=== PATIENT | female | born 2000 | race Caucasian/White ===

== ENCOUNTER 2022-01-05 20:32 | Emergency (ER) | payer MEDICAID, OTHER ==
[~2022-01-05] VITALS: Ht 154.9 cm; Wt 56.7 kg
[2022-01-05 21:57] LABS: Urine Amorphous Crystal MOD /hpf (None Seen); Urine Bacteria NONE SEEN /hpf (None Seen); Urine Blood Negative /uL (Negative); Urine Specific Gravity 1.021 (1.001-1.035); Urine WBC 2 /hpf (0 - 5)
[2022-01-06 05:31] VITALS: BP 101/45
[2022-01-06] MEDS ORDERED: CYCL-837 PO (07:03)
[2022-01-06] MEDS ORDERED: ACET-1158 PO (07:03)
== END 2022-01-06 07:10 | disposition home or self-care (01) ==
LOC: ER 20:32
DX: S16.1XXA Strain of muscle, fascia and tendon at neck level, initial encounter (principal); S29.012A Strain of muscle and tendon of back wall of thorax, initial encounter; M20.092 Other deformity of left finger(s); V43.52XA Car driver injured in collision with other type car in traffic accident, initial encounter; Y93.89 Activity, other specified; Y92.410 Unspecified street and highway as the place of occurrence of the external cause; Y99.8 Other external cause status
CPT/HCPCS: 81001; 81025